=== PATIENT | male | born 1935 | race Caucasian/White ===

== ENCOUNTER 2016-12-03 19:16 | Emergency (ER) | payer MEDICARE, OTHER ==
[2016-12-03 20:12] LABS: BASOPHIL 0.4 % (0-2); HCT 40.1 % (42.0-52.0); HGB 13.3 g/dl (13.2-18.0); LYMPHOCYTE 31.6 % (15-48); MCH 31.7 pg (25.0-31.0); MCHC 33.2 g/dL (32.0-36.0); MCV 95.7 fL (78.0-100.0); MONOCYTE 6.6 % (0-12); MPV 9.9 fL (6.0-9.5); NEUTROPHIL 57.4 % (41-80); PLT 160 K/uL (150-400); RBC 4.19 M/uL (4.70-6.00); RDW 12.7 % (11.5-14.0); WBC 5.5 K/uL (4.0-10.5)
[2016-12-03 20:18] LABS: INR 1.05 (0.9-1.2); PROTHROMBIN TIME 13.3 SECONDS (11.7-14.0)
[2016-12-03 20:28] LABS: CREATININE 1.1 mg/dL (0.7-1.2); POTASSIUM 4.5 mmol/L (3.5-5.1)
== END 2016-12-03 22:10 | disposition home or self-care (01) ==
LOC: FER 19:16
PROVIDERS: Emergency Medicine Emergency Medical Services
DX: T17.890A Other foreign object in other parts of respiratory tract causing asphyxiation, initial encounter (principal); R07.2 Precordial pain; I44.0 Atrioventricular block, first degree; I45.10 Unspecified right bundle-branch block; I48.91 Unspecified atrial fibrillation; F41.9 Anxiety disorder, unspecified; E78.5 Hyperlipidemia, unspecified; Z95.0 Presence of cardiac pacemaker
CPT/HCPCS: 36415; 71020; 80048; 85025; 85610; 85730; 93005; 94640; 94760

== ENCOUNTER 2022-05-15 11:46 | Emergency (ER) | payer MEDICARE, OTHER ==
[2022-05-15 12:51] LABS: BASOPHIL 0.5 % (0-2); EOSINOPHIL 0.1 % (0-7); HCT 39.1 % (42.0-52.0); HGB 12.8 g/dl (13.2-18.0); LYMPHOCYTE 12.5 % (15-48); MCH 31.8 pg (25.0-31.0); MCHC 32.7 g/dL (32.0-36.0); MCV 97.3 fL (78.0-100.0); MONOCYTE 6.3 % (0-12); MPV 10.2 fL (6.0-9.5); NEUTROPHIL 80.2 % (41-80); NRBC 0; PLT 153 K/uL (150-400); RBC 4.02 M/uL (4.70-6.00); RDW 12.8 % (11.5-14.0); WBC 7.6 K/uL (4.0-10.5)
[2022-05-15 12:52] LABS: BILIRUBIN NEGATIVE (NEGATIVE); BLOOD NEGATIVE Ery/uL (NEGATIVE); CLARITY CLEAR (CLEAR); COLOR YELLOW (YELLOW); GLUCOSE (U) NORMAL (NORMAL); LEUKOCYTES NEGATIVE Leu/uL (NEGATIVE); NITRITE NEGATIVE (NEGATIVE); PROTEIN TRACE (LOW) mg/dL (NEGATIVE); SPECIFIC GRAVITY >=1.030 (1.001-1.030); UROBILINOGEN 0.2 mg/dL (0.2-1.0); pH 5.5 (5.0-9.0)
[2022-05-15 13:05] LABS: ALBUMIN 3.6 g/dL (3.4-5.0); BILIRUBIN - TOTAL 1.1 mg/dL (0.2-1.0); BUN/CREAT RATIO (CALC) 17.5 RATIO; CREATININE 1.03 mg/dL (0.67-1.17); POTASSIUM 4.1 mmol/L (3.5-5.1); TOTAL PROTEIN 6.6 g/dL (6.4-8.2)
[2022-05-15 13:30] LABS: CORONAVIRUS 2019 SARS-COV-2 NEGATIVE (NEGATIVE); INFLUENZA A NAA NEGATIVE (NEGATIVE)
== END 2022-05-15 16:31 | disposition home or self-care (01) ==
LOC: FER 11:46
PROVIDERS: Nurse Practitioner Family
DX: E86.0 Dehydration (principal); Z20.822 Contact with and (suspected) exposure to COVID-19
CPT/HCPCS: 36415; 71045; 80053; 81003; 83690; 85025; J2405; J7030; J7040; U0002